=== PATIENT | male | born 1985 | race Caucasian/White ===

== ENCOUNTER 2020-10-05 15:11 | Emergency (ER) | payer OTHER ==
[2020-10-05] MEDS ORDERED: ZOFRAN4 MG PO (15:57)
[2020-10-05] MEDS ORDERED: BENTYL 20MG TAB20 MG PO (15:57)
== END 2020-10-05 16:11 | disposition home or self-care (01) ==
LOC: ER1 15:11
DX: R11.2 Nausea with vomiting, unspecified (principal); R19.7 Diarrhea, unspecified; F17.200 Nicotine dependence, unspecified, uncomplicated; Z90.89 Acquired absence of other organs
CPT/HCPCS: 99283

== ENCOUNTER → 2021-12-07 | Outpatient (CLI) | payer OTHER ==
[~2021-12-07] MED LIST: BENTYL 20MG TAB20 MG PO; ZOFRAN4 MG PO
== END ==
LOC: RAD 10:58
DX: M25.552 Pain in left hip (principal)
CPT/HCPCS: 73502